=== PATIENT | male | born 1985 | race African-American/Black ===

== ENCOUNTER 2017-04-05 23:59 | Emergency (ER) | payer MEDICAID, OTHER ==
[~2017-04-05] VITALS: Ht 170.2 cm; Wt 115.0 kg
[~2017-04-05 23:59] MED LIST: FIORTAB4 PO; MIGR4SPR
[2017-04-06 00:05] VITALS: BP 170/117; PULSE 93; RESP 16; TEMP 98.5; O2SAT 100
[2017-04-06] MEDS ORDERED: SIMV40TA PO (00:39)
[2017-04-06] MEDS ORDERED: HYDR25TA5 PO (00:39)
[2017-04-06] MEDS ORDERED: TETANUS/DIPHTHERIA TOXOID ADULT 0.5 ML VIAL IM ONE (00:45)
[2017-04-06] MEDS ORDERED: LIDOCAINE HCL 1% 30 ML VIAL INFIL ONE (00:45)
--- NOTE | 2017-04-06 00:50 | PD ---
HPI Chief Complaint: Laceration/Skin Injury Time Seen by Provider: 00:50 Travel History International Travel<30 days: No Contact w/Intl Traveler<30days: No Traveled to known affect area: No History of Present Illness HPI Patient is a 32-year-old male who presents to emergency room for evaluation of laceration to his right hand digit #4. Patient reports that he was catching a pot that was falling and the pot ended up cutting his finger. Reports that his tetanus is not up to date. Reports that incident occurred prior to coming to the ER [facility] Past Medical History Cardiovascular Problems: Yes (HTN) Headaches: Yes Hypertension: Yes Tetanus Vaccination: Unknown Influenza Vaccination: No Past Surgical History Surgical History: No Previous Surgery Social History Alcohol Use: No Tobacco Use: No Substance Use: No Allergies-Medications (Allergen,Severity, Reaction): Coded Allergies: No Known Allergies (Verified , 04/06/17) Reported Meds & Prescriptions Reported Meds & Active Scripts Active Reported Hydrochlorothiazide 25 Mg Tab 25 Mg PO BID Simvastatin 40 Mg Tab 40 Mg PO HS Review of Systems General / Constitutional: No: Fever Eyes: No: Visual changes HENT: No: Headaches Cardiovascular: No: Chest Pain or Discomfort Respiratory: No: Shortness of Breath Gastrointestinal: No: Abdominal Pain Genitourinary: No: Dysuria Musculoskeletal: No: Pain Skin: Positive Other (laceration to finger), No Rash Neurologic: No: Weakness Psychiatric: No: Depression Endocrine: No: Polydipsia Hematologic/Lymphatic: No: Easy Bruising Physical Exam Narrative GENERAL: Well-nourished, well-developed patient. SKIN: Focused skin assessment warm/dry. Patient with 0.5cm linear laceration to right digit #5 volar region HEAD: Normocephalic. EYES: No scleral icterus. No injection or drainage. NECK: Supple, trachea midline. No JVD or lymphadenopathy. CARDIOVASCULAR: Regular rate and rhythm without murmurs, gallops, or rubs. RESPIRATORY: Breath sounds equal bilaterally. No accessory muscle use. GASTROINTESTINAL: Abdomen soft, non-tender, nondistended. MUSCULOSKELETAL: No cyanosis, or edema. BACK: Nontender without obvious deformity. No CVA tenderness. Data Data Last Documented VS Vital Signs Date Time Temp Pulse Resp B/P Pulse Ox O2 Delivery O2 Flow Rate FiO2 04/06/17 00:05 98.5 93 16 170/117 100 Room Air Orders Lidocaine 1% Inj (Xylocaine 1% Inj) (04/06/17 00:45) Tetanus/Diphtheria Tox Adult (Tetanus/Di (04/06/17 00:45) MDM Medical Decision Making Medical Screen Exam Complete: Yes Emergency Medical Condition: Yes Interpretation(s) Vital Signs Date Time Temp Pulse Resp B/P Pulse Ox O2 Delivery O2 Flow Rate FiO2 04/06/17 00:05 98.5 93 16 170/117 100 Room Air Differential Diagnosis Finger laceration Narrative Course Patient is a 32-year-old male with complaints of finger laceration after he was trying to catch a glass pot today. Patient's tetanus is not up-to-date, we'll update tetanus. Will require suture of his laceration wound. Patient will follow up with his primary care doctor or return to the ER in 5-7 days for suture removal. Patient will return to ER if he develops any signs of infection Diagnosis Primary Impression: Laceration of finger of right hand Qualified Code: S61.219A - Laceration of finger of right hand, initial encounter Patient Instructions: General Instructions Additional Instructions: Please keep wound clean and covered Return to the emergency room or to primary care doctor in 5-7 days for suture removal Please return to emergency room earlier if you develop any signs of infection or drainage Please do not drive or operate heavy machinery while taking narcotic pain medications Med/Other Pt SpecificInfo: Prescription(s) given, Wound Care Scripts Hydrocodone-Acetaminophen (Lortab)5-325 Mg Tab1 Tab PO Q6H PRN (PAIN) #10 TAB Ref 0 Prov:Adrienne Boyce DO 04/06/17 Disposition: 01 DISCHARGE HOME Condition: Stable Adrienne Boyce DO April 06, 2017 00:50
[2017-04-06] MEDS ORDERED: HYDR-3533 PO (00:54)
--- NOTE | 2017-04-06 01:18 | PD ---
Physical Exam Date Seen by Provider: April 06, 2017 Time Seen by Provider: 01:14 Narrative Skin: Right ring finger: There is a 1.5 x 1.2 cm area of skin avulsion to the proximal volar surface of the ring finger. There is acted venous bleeding. There is no exposed tendon. No joint involvement. He has intact gross sensation distally. Data Data Last Documented VS Vital Signs Date Time Temp Pulse Resp B/P Pulse Ox O2 Delivery O2 Flow Rate FiO2 04/06/17 00:05 98.5 93 16 170/117 100 Room Air Orders Lidocaine 1% Inj (Xylocaine 1% Inj) (04/06/17 00:45) Tetanus/Diphtheria Tox Adult (Tetanus/Di (04/06/17 00:45) MDM Medical Record Reviewed: Yes Supervised Visit with MARCELO: Yes Differential Diagnosis MDM: High Differential diagnoses: Fracture, sprain, strain, dislocation, contusion, neurovascular injury Narrative Course Patient's laceration is approximated with sutures. The patient is made aware that he has an avulsion of skin in that the sutures will help in the healing process but there will be a. Of time where the wound will need to healing by secondary retention. This will most likely take at least 2 months. Procedures Procedure Narrative LACERATION LOCATION: Right ring finger proximal volar surface LENGTH: 1.5 x 1.2 cm skin avulsion NUMBER OF STITCHES/KATE: 6 REPAIR: The area of the laceration was prepped with Betadine and sterilely draped. The laceration was infiltrated with 1% lidocaine digital block. The wound was copiously irrigated and explored without evidence of foreign body, tendon injury or neurovascular injury. The wound was approximated using 5-0 proline. This was a simple single layer repair. A sterile dressing was applied. The patient was advised to keep the dressing clean and dry. Patient tolerated the procedure well. Diagnosis Primary Impression: Laceration of finger of right hand Qualified Code: S61.219A - Laceration of finger of right hand, initial encounter Patient Instructions: General Instructions Additional Instruction: Please keep wound clean and covered Please return to emergency room earlier if you develop any signs of infection or drainage Please do not drive or operate heavy machinery while taking narcotic pain medications Rest. Elevation. Keep clean and dry. Daily wound care with soap, water, Neosporin. Tylenol and Advil for pain. Sutures out in 14 days. Return to the ER for any problems. Med/Other Pt SpecificInfo: Prescription(s) given Scripts Hydrocodone-Acetaminophen (Lortab)5-325 Mg Tab1 Tab PO Q6H PRN (PAIN) #10 TAB Ref 0 Prov:Adrienne Boyce DO 04/06/17 Disposition: 01 DISCHARGE HOME Condition: Stable Arsh Rosen April 06, 2017 01:18
== END 2017-04-06 01:54 | disposition home or self-care (01) ==
LOC: NEPD 23:59
DX: S61.214A Laceration without foreign body of right ring finger without damage to nail, initial encounter (principal); I10 Essential (primary) hypertension; W26.8XXA Contact with other sharp object(s), not elsewhere classified, initial encounter; Y92.009 Unspecified place in unspecified non-institutional (private) residence as the place of occurrence of the external cause; Z23 Encounter for immunization
CPT/HCPCS: 12001; 90471; 90714

== ENCOUNTER 2017-04-20 22:05 | Emergency (ER) | payer OTHER ==
[~2017-04-20 22:05] MED LIST changes: -FIORTAB4 PO; +HYDR-3533 PO; +HYDR25TA5 PO; -MIGR4SPR; +SIMV40TA PO
[2017-04-20 22:07] VITALS: BP 159/97; PULSE 92; RESP 14; TEMP 98.1; O2SAT 98
--- NOTE | 2017-04-20 23:12 | PD ---
HPI Chief Complaint: Wound/Suture/Staple Re-Check Time Seen by Provider: 22:58 Travel History International Travel<30 days: No Contact w/Intl Traveler<30days: No Traveled to known affect area: No History of Present Illness HPI This is a 32-year-old male presents emergency department for evaluation of suture removal. Patient states he had a cut on his right hand palmar surface over the MCP joint on the fifth digit. This was 14 days ago. States wound is been healing well and needs stitches removed. Has no complaints. PFSH Past Medical History Cardiovascular Problems: Yes (HTN) Headaches: Yes Hypertension: Yes Social History Alcohol Use: No Tobacco Use: No Substance Use: No Allergies-Medications (Allergen,Severity, Reaction): Coded Allergies: No Known Allergies (Verified , 04/20/17) Reported Meds & Prescriptions Reported Meds & Active Scripts Active Lortab (Hydrocodone-Acetaminophen) 5-325 Mg Tab 1 Tab PO Q6H PRN Reported Hydrochlorothiazide 25 Mg Tab 25 Mg PO BID Simvastatin 40 Mg Tab 40 Mg PO HS Review of Systems Except as stated in HPI: all other systems reviewed are Neg Physical Exam Narrative GENERAL: Well-nourished, well-developed patient. SKIN: Focused skin assessment warm/dry. Well-healed laceration approximately a centimeter and a half in length in the location described above. Clean dry and intact stitches in place. HEAD: Normocephalic. EYES: No scleral icterus. No injection or drainage. NECK: Supple, trachea midline. No JVD or lymphadenopathy. CARDIOVASCULAR: Regular rate and rhythm without murmurs, gallops, or rubs. RESPIRATORY: Breath sounds equal bilaterally. No accessory muscle use. GASTROINTESTINAL: Abdomen soft, non-tender, nondistended. MUSCULOSKELETAL: No cyanosis, or edema. BACK: Nontender without obvious deformity. No CVA tenderness. Data Data Last Documented VS Vital Signs Date Time Temp Pulse Resp B/P Pulse Ox O2 Delivery O2 Flow Rate FiO2 04/20/17 22:07 98.1 92 14 159/97 98 Room Air MDM Medical Decision Making Medical Screen Exam Complete: Yes Emergency Medical Condition: Yes Differential Diagnosis Encounter for suture removal Narrative Course Patient was roomed in emergency department, sutures removed by Josie GARDINER. Patient stable for discharge. Discussed symptomatically management and wound healing going forward. Diagnosis Primary Impression: Encounter for removal of sutures Disposition: DISCHARGE HOME Condition: Stable Bowen Wood MD April 20, 2017 23:12
== END 2017-04-20 23:29 | disposition home or self-care (01) ==
LOC: NEPD 22:05
DX: Z48.02 Encounter for removal of sutures (principal); I10 Essential (primary) hypertension
CPT/HCPCS: 99281

== ENCOUNTER 2017-06-22 11:19 | Emergency (ER) | payer OTHER ==
[~2017-06-22] VITALS: Ht 170.2 cm; Wt 120.0 kg
[2017-06-22 11:23] VITALS: BP 149/98; PULSE 100; RESP 18; TEMP 98.9; O2SAT 98
[2017-06-22 11:37] VITALS: BP 168/85; PULSE 95
--- NOTE | 2017-06-22 11:47 | PD ---
HPI Chief Complaint: Hypertension Time Seen by Provider: 11:43 Travel History International Travel<30 days: No Contact w/Intl Traveler<30days: No Traveled to known affect area: No History of Present Illness HPI 32-year-old male presents to the emergency department for evaluation of hypertension. His family member at bedside states for the past 4 days it has been running 148-180 systolic, 90-110 diastolic. They followed up with her primary care physician 1 week ago and has another appointment on Sunday with a physician at Dr. Buckley's office. The patient denies any complaints at this time. No headache. No chest pain or shortness of breath. No abdominal pain. No nausea, vomiting, diarrhea. He states he feels his normal self. Patient has history of hyperlipidemia, chronic headaches, and hypertension. He is currently on simvastatin and hydrochlorothiazide. He did take his medications this morning. PFSH Past Medical History Cardiovascular Problems: Yes (HTN) High Cholesterol: Yes Diminished Hearing: No Headaches: Yes Hypertension: Yes Tetanus Vaccination: < 5 Years Past Surgical History Surgical History: No Previous Surgery Social History Alcohol Use: No Tobacco Use: No Substance Use: No Allergies-Medications (Allergen,Severity, Reaction): Coded Allergies: No Known Allergies (Verified , 06/22/17) Reported Meds & Prescriptions Reported Meds & Active Scripts Active Reported Hydrochlorothiazide 25 Mg Tab 25 Mg PO BID Simvastatin 40 Mg Tab 40 Mg PO HS Review of Systems Except as stated in HPI: all other systems reviewed are Neg Physical Exam Narrative GENERAL: Well-nourished, well-developed male patient, ambulatory. Afebrile. SKIN: Focused skin assessment warm/dry. HEAD: Normocephalic. Atraumatic. EYES: No scleral icterus. No injection or drainage. NECK: Supple, trachea midline. No JVD or lymphadenopathy. CARDIOVASCULAR: Regular rate and rhythm without murmurs, gallops, or rubs. RESPIRATORY: Breath sounds equal bilaterally. No accessory muscle use. Lungs sounds are clear to auscultation. GASTROINTESTINAL: Abdomen soft, non-tender, nondistended. MUSCULOSKELETAL: No cyanosis, or edema. BACK: Nontender without obvious deformity. No CVA tenderness. Data Data Last Documented VS Vital Signs Date Time Temp Pulse Resp B/P Pulse Ox O2 Delivery O2 Flow Rate FiO2 06/22/17 11:37 98 Room Air 06/22/17 11:37 95 168/85 06/22/17 11:23 98.9 18 MDM Medical Decision Making Medical Screen Exam Complete: Yes Emergency Medical Condition: Yes Medical Record Reviewed: Yes Differential Diagnosis Hypertension versus medical clearance versus medication noncompliance Narrative Course 32-year-old male presents to the emergency department for evaluation of hypertension. His blood pressure is currently 168/85. He is asymptomatic and has no complaints. He appears well on Exam. He is on hydrochlorothiazide and took this this morning. He has a follow-up appointment with his primary care physician on Sunday. I instructed him to monitor his blood pressure 1-2 times daily and keep a log. He is to follow his primary care physician on Sunday and show his primary care physician his blood pressure log. He is to return for a here for any acute worsening of symptoms. He verbalizes agreement and understanding. Diagnosis Primary Impression: Hypertension Qualified Code: I10 - Essential hypertension Referrals: Primary Care Physician call for appointment Patient Instructions: Chronic Hypertension (ED), General Instructions Additional Instructions: Continue medication as prescribed. Keep a log of your blood pressure and show this to your primary care physician at your follow-up appointment on Sunday. Return to the emergency department for any acute worsening of symptoms. Med/Other Pt SpecificInfo: No Change to Meds Disposition: 01 DISCHARGE HOME Condition: Stable RobertJosie GARDINER Jun 22, 2017 11:47
== END 2017-06-22 12:10 | disposition home or self-care (01) ==
LOC: NEPD 11:19
DX: I10 Essential (primary) hypertension (principal)
CPT/HCPCS: 99282